=== PATIENT | male | born 2000 | race Caucasian/White ===

== ENCOUNTER 2021-12-02 13:46 | Emergency (ER) | payer SELFPAY ==
[2021-12-02 13:48] VITALS: BP 136/98; PULSE 66; RESP 18; TEMP 36.8; O2SAT 100; BMI 24.4
--- NOTE | 2021-12-02 14:03 | PC.NURSE ---
ED MD at
--- NOTE | 2021-12-02 14:18 | [facility].EDWNDL ---
ED Disposition Clinical Impression: Laceration of left cheek without complication Qualifiers: Encounter type: initial encounter Qualified Code(s): S01.412A - Laceration without foreign body of left cheek and temporomandibular area, initial encounter Disposition: Home, Self-Care Condition on Discharge: Good Instructions: DI for Laceration Repair Referrals: Darnell Virgen MD [Staff Physician] - - Critical Care Critical Care Time: No Attestation: On , the high probability of a clinically significant, sudden or life threatening deterioration of the following system(s) required my full and direct attention, intervention and personal management. The time I documented below is in addition to time spent performing reported procedures but includes the following listed in this critical care notation. Medical Decision Making - Medical Records Medical records reviewed: Yes: I reviewed the patient's medical records. - Juan Manuel Inquiry Pt receiving controlled substance: No Vital Signs: 12/02/21 13:48 Temperature 98.3 F Temperature Source Oral Pulse Rate [Left Radial] 66 Respiratory Rate 18 Blood Pressure [Right Arm] 136/98 H Blood Pressure Mean [Right Arm] 110 Blood Pressure Source [Right Arm] Automatic Cuff Blood Pressure Position [Right Arm] Sitting 02 Sat by Pulse Oximetry 100 Oxygen Delivery Method Room Air - Reevaluation(s) Time: 14:20 Reevaluation #1: On reevaluation, patient tolerated procedure well. Patient was given wound care instructions. Need suture removal in 7 to 10 days. Strict return precautions. Verbalized understanding. Medical Decision Narrative: 21-year-old male presented to emergency department laceration to the cheek. Patient will require suture repair. We did thoroughly irrigate the wound. Wound/Laceration HPI - General Chief Complaint: Wound/Laceration Stated Complaint: WC 12/02/21 13:20 Time Seen by Provider: 12/02/21 13:55 Mode of Arrival: Ambulatory Limitations: No Limitations Description of Symptoms (Recalled from ER Triage Doc. by RN): c/o laceration to left cheek, pt was turning and hit a light bulb causing a laceration - History of Present Illness HPI narrative: 21-year-old male presented to the emergency department laceration to the left side of his cheek. Patient was at work when he stood up and hit a light bulb with the left side of his face. He has a 3 cm laceration to the left cheek. No active bleeding at this time. Patient is up-to-date on tetanus immunization. He denies any loss of consciousness. Is not complain of any headache change in vision or focal weakness. Denies any chest pain or shortness of breath. Abdominal pain or vomiting. [facility] History - Hepatitis A Screen Drug use history?: No High risk sexual behaviors?: No History of sexually transmitted infection?: No Currently employed?: No Childcare worker?: No Do you have indoor plumbing?: Yes Do you have electricity?: Yes Attestation statement:: This patient has been screened for Hepatitis A risk factors. I have reviewed the patient's past medical history: Yes ROS Obtained: Yes All systems reviewed & no additional complaints - Constitutional Constitutional: Denies chills, Denies fever(s) - Musculoskeletal Musculoskeletal: Denies joint pain - Integumentary/Breasts Skin/Breast: Reports other (laceration to the left cheek) - Neurologic Neurologic: Denies headache(s) Physical Exam - General General appearance: alert, in no apparent distress - Eye Eye exam: Present: normal appearance, PERRL, EOMI - Respiratory Respiratory exam: Present: normal lung sounds bilaterally. Absent: respiratory distress - Cardiovascular Cardiovascular exam: Present: regular rate, normal rhythm - Abdominal Exam Abdominal exam: Present: soft. Absent: distention, tenderness, guarding - Neurological Exam Neurological exam: Present: alert, oriented X3, normal gait - Skin Skin exam: Present: o
[2021-12-02 14:26] VITALS: BP 125/89; PULSE 64; RESP 20; TEMP 36.8; O2SAT 100
== END 2021-12-02 14:30 | disposition home or self-care (01) ==
LOC: ER 14:31
PROVIDERS: Emergency Provider Emergency Medicine
DX: S01.412A Laceration without foreign body of left cheek and temporomandibular area, initial encounter (principal); Z88.0 Allergy status to penicillin; Z88.1 Allergy status to other antibiotic agents; Z88.3 Allergy status to other anti-infective agents; W22.8XXA Striking against or struck by other objects, initial encounter; Y92.69 Other specified industrial and construction area as the place of occurrence of the external cause
CPT/HCPCS: 12013; 99282